=== PATIENT | male | born 1975 | race Caucasian/White ===

== ENCOUNTER 2022-09-27 14:57 | Emergency (ER) | payer SELFPAY ==
[2022-09-27] MEDS ORDERED: Sodium Chloride 0.9% 10 ML Syringe FLUSH PRN (16:17)
[2022-09-27] MEDS ORDERED: Sodium Chloride 0.9% 1,000 ML IV ONE (16:17)
[2022-09-27] MEDS ORDERED: Diltiazem 25 MG/5 ML SDV IVPUSH ONE ×2 (16:17→18:09)
[2022-09-27 16:24] LABS: EOSINOPHILS PERCENT AUTO 0 (0.8-7.0); HEMATOCRIT 54.9 % (40.1-51.0); HEMOGLOBIN 19.5 gm/dl (13.7-17.5); IMMATURE GRAN ABSOLUTE AUTO 0.01 K/mm3 (0.00-0.10); IMMATURE GRAN PERCENT AUTO 0.1 % (<=1.0); LYMPHOCYTES ABSOLUTE AUTO 1.01 K/mm3 (1.32-3.57); LYMPHOCYTES PERCENT AUTO 10.3 % (21.8-53.1); MEAN CORPUSCULAR HEMOGLOBIN 31.8 pg (25.7-32.2); MEAN CORPUSCULAR HGB CONC 35.5 g/dl (32.2-35.5); MEAN CORPUSCULAR VOLUME 89.4 fl (79.0-92.2); MEAN PLATELET VOLUME 11.1 fl (9.4-12.3); MONOCYTES ABSOLUTE AUTO 0.75 K/mm3 (0.30-0.82); MONOCYTES PERCENT AUTO 7.6 % (5.3-12.2); NEUTROPHILS ABSOLUTE AUTO 8.07 K/mm3 (1.78-5.38); PLATELET COUNT,PLT 168 K/mm3 (163-337); RED BLOOD CELL COUNT 6.14 M/mm3 (4.63-6.08); WHITE BLOOD CELL COUNT,WBC 9.84 K/mm3 (4.23-9.07)
[2022-09-27 16:43] LABS: A/G RATIO 1.2 (1-2); ALANINE AMINOTRANSFERASE,ALT 52 U/L (16-63); ALBUMIN 4.1 g/dl (3.4-5.0); ALKALINE PHOSPHATASE 106 U/L (46-116); ANION GAP 11.7 (5-15); ASPARTATE AMNIOTRANSFERASE,AST 49 U/L (15-37); BILIRUBIN TOTAL 0.9 mg/dL (0.2-1.0); BLOOD UREA NITROGEN,BUN 34 mg/dL (7-18); BUN/CREATININE RATIO 15.5 (14-18); C-REACTIVE PROTEIN <0.2 mg/dL (<1.0); CALCIUM 9.5 mg/dL (8.5-10.1); CARBON DIOXIDE,CO2 28 mEq/L (21-32); CHLORIDE,CL 101 mEq/L (98-107); CREATININE 2.2 mg/dL (0.7-1.3); EST CRCL DRUG DOSING (CG) 44.58 mL/min; ESTIMATED GFR 36 mL/min (>60); GLUCOSE RANDOM 113 mg/dL (70-99); POTASSIUM,K 4.7 mEq/L (3.5-5.1); PROTEIN TOTAL,TP 7.4 g/dl (6.4-8.2); SODIUM,NA 136 mEq/L (136-145); TSH 0.957 uIU/mL (0.358-3.74)
[2022-09-27 16:45] LABS: TROPONIN I HIGH SENSITIVITY 79 pg/mL (<=76)
[2022-09-27] MEDS ORDERED: Diltiazem 180 MG Cap.CD PO ONE (17:19)
[2022-09-27] MEDS ORDERED: Iopamidol 755 MG/ML 50 ML Bottle IVPUSH ONE (18:53)
[2022-09-27] MEDS ORDERED: Iopamidol 755 Mg/ML 100 ML Bottle IVPUSH ONE (18:53)
[2022-09-27] MEDS ORDERED: Sodium Chloride 0.9% 10 ML Syringe FLUSH ONE (18:53)
[2022-09-27] MEDS ORDERED: Sodium Chloride 0.9% 100 ML IV SCH (19:00)
[2022-09-27] MEDS ORDERED: Aspirin 81 MG Tab.Chew PO ONE (19:48)
[2022-09-27] MEDS ORDERED: Apixaban 5 MG Tab PO ONE (20:07)
== END 2022-09-27 20:53 | disposition home or self-care (01) ==
LOC: JD.ED 14:57
DX: I70.202 Unspecified atherosclerosis of native arteries of extremities, left leg (principal); I70.201 Unspecified atherosclerosis of native arteries of extremities, right leg; N28.9 Disorder of kidney and ureter, unspecified; I48.91 Unspecified atrial fibrillation; Z79.01 Long term (current) use of anticoagulants
CPT/HCPCS: 36415; 71045; 73706; 80053; 84443; 84484; 85025; 85379; 86140; 93005; 93971; 96374; 96376; 99284; A9270; J3490; J7030; Q9967; 93010